=== PATIENT | male | born 1940 | race Caucasian/White ===

== ENCOUNTER 2021-02-07 01:20 | Inpatient (IN) | payer OTHER ==
[~2021-02-07] VITALS: Ht 177.8 cm; Wt 75.6 kg
[~2021-02-07 01:20] MED LIST: ASPI81EC PO; METO50ER PO; STOMACH PILL PO
[2021-02-07 02:02] LABS: BASOPHILS ABSOLUTE AUTO 0.02 K/mm3 (0.00-0.23); BASOPHILS PERCENT AUTO 1 % (0-2); EOSINOPHILS ABSOLUTE AUTO 0.28 K/mm3 (0.00-0.68); EOSINOPHILS PERCENT AUTO 7 % (0-6); Hematocrit 41.6 % (37.0-53.0); Hemoglobin 14.3 g/dL (13.5-17.5); IMMATURE GRAN ABSOLUTE AUTO 0.01 K/mm3 (0.00-0.10); IMMATURE GRAN PERCENT AUTO 0 % (0-1); LYMPHOCYTES ABSOLUTE AUTO 1.17 K/mm3 (0.84-5.20); LYMPHOCYTES PERCENT AUTO 31 % (21-46); MONOCYTES ABSOLUTE AUTO 0.48 K/mm3 (0.16-1.47); MONOCYTES PERCENT AUTO 13 % (4-13); Mean Corpuscular HGB 32.1 pg (26.0-34.0); Mean Corpuscular HGB Conc 34.4 g/dL (31.5-36.5); Mean Corpuscular Volume 94 fL (80-100); Mean Platelet Volume 10.6 fL (9.1-12.4); NEUTROPHILS ABSOLUTE AUTO 1.83 K/mm3 (1.96-9.15); NEUTROPHILS PERCENT AUTO 48 % (41-73); Platelet Count 143 K/mm3 (150-400); RDW Coefficient Variation 11.6 % (11.7-14.2); RDW Standard Deviation 39.1 fL (35.1-46.3); Red Blood Cell Count 4.45 M/mm3 (4.30-5.90); White Blood Cell Count 3.79 K/mm3 (4.00-11.30)
[2021-02-07 02:16] LABS: International Normalized Ratio 0.93
[2021-02-07 02:18] LABS: Alanine Aminotransfer (ALT/SGP 28 U/L (12-78); Albumin, Blood 3.2 g/dL (3.4-5.0); Alk Phos 119 U/L (50-136); Anion Gap 2 mmol/L (6-16); Aspartate Aminotrans (AST/SGOT 14 U/L (12-37); Bilirubin, Total 0.5 mg/dL (0.1-1.0); Blood Urea Nitrogen 26 mg/dL (8-24); Bun/Creatinine Ratio 18.4 (12.0-20.0); CO2, Blood 29 mmol/L (21-32); Calcium, Blood 8.4 mg/dL (8.5-10.1); Chloride, Blood 110 mmol/L (98-108); Creatinine, Blood 1.41 mg/dL (0.60-1.20); Ethanol (Alcohol), Blood, Med <3 mg/dL; Globulin, Blood 3.2 g/dL (2.2-4.0); Glomerular Filtration Rate 52 (60-); Glucose, Blood 96 mg/dL (70-99); Potassium, Blood 4.3 mmol/L (3.5-5.5); Sodium, Blood 141 mmol/L (136-145); Total Protein, Blood 6.4 g/dL (6.4-8.2)
[2021-02-07] MEDS ORDERED: Aspir 8181 MG PO (03:09)
[2021-02-07] MEDS ORDERED: AMLO5 PO (03:10)
[2021-02-07] MEDS ORDERED: LOSA25 PO (03:11)
[2021-02-07] MEDS ORDERED: ATOR80 PO (03:11)
[2021-02-07] MEDS ORDERED: Flomax0.4 MG PO (03:12)
[2021-02-07] MEDS ORDERED: CLOP75 PO (04:04)
[2021-02-07 04:55] LABS: Source, Urine Clean Catch
[2021-02-07 05:05] LABS: Bilirubin, Urine Neg (Neg); Blood, Urine Neg (Neg); Glucose Qualitative, Urine Neg (Neg); Ketones, Urine Neg (Neg); Leukocyte Esterase, Urine Neg (Neg); Nitrite, Urine Neg (Neg); Protein, Urine 1+ (Neg); Urobilinogen, Urine NORM (Normal)
--- NOTE | 2021-02-07 05:05 | NUR ---
GENERAL INTERNIST SUMMARY NEW ADMIT FROM THE ED TONIGHT. PT ADMITTED AFTER EXPERIENCING L ARM WEAKNESS, SLURRED SPEECH, AND LEFT FACIAL DROOP AT HOME. PT AAOX4 AND ABLE TO AMBULATE FROM ED GURNEY TO BED. PT ABLE TO COMMUNICATE FAIRLY WELL WITH SOME MINIMAL SLURRING STILL NOTED. DECREASED STRENGTH AND USE OF L HAND. LEFT FACIAL DROOP STILL PRESENT. 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 NSR ON TELEMETRY. GIVEN ATORVASTATIN AND ASPIRIN PER ORDERS. VSS, WILL CONTINUE TO MONITOR.
[2021-02-07 05:15] LABS: Appearance, Urine Clear (Clear); Color, Urine Yellow (P-Yellow)
[2021-02-07 10:11] LABS: BASOPHILS ABSOLUTE AUTO 0.02 K/mm3 (0.00-0.23); BASOPHILS PERCENT AUTO 0 % (0-2); EOSINOPHILS ABSOLUTE AUTO 0.23 K/mm3 (0.00-0.68); EOSINOPHILS PERCENT AUTO 5 % (0-6); Hematocrit 45.4 % (37.0-53.0); Hemoglobin 15.4 g/dL (13.5-17.5); IMMATURE GRAN ABSOLUTE AUTO 0.02 K/mm3 (0.00-0.10); IMMATURE GRAN PERCENT AUTO 0 % (0-1); LYMPHOCYTES ABSOLUTE AUTO 1.05 K/mm3 (0.84-5.20); LYMPHOCYTES PERCENT AUTO 22 % (21-46); MONOCYTES ABSOLUTE AUTO 0.56 K/mm3 (0.16-1.47); MONOCYTES PERCENT AUTO 12 % (4-13); Mean Corpuscular HGB 31.9 pg (26.0-34.0); Mean Corpuscular HGB Conc 33.9 g/dL (31.5-36.5); Mean Corpuscular Volume 94 fL (80-100); Mean Platelet Volume 10.5 fL (9.1-12.4); NEUTROPHILS ABSOLUTE AUTO 3.01 K/mm3 (1.96-9.15); NEUTROPHILS PERCENT AUTO 62 % (41-73); Platelet Count 152 K/mm3 (150-400); RDW Coefficient Variation 11.5 % (11.7-14.2); RDW Standard Deviation 39.7 fL (35.1-46.3); Red Blood Cell Count 4.83 M/mm3 (4.30-5.90); White Blood Cell Count 4.89 K/mm3 (4.00-11.30)
[2021-02-07 11:41] LABS: Alanine Aminotransfer (ALT/SGP 29 U/L (12-78); Albumin, Blood 3.7 g/dL (3.4-5.0); Alk Phos 140 U/L (50-136); Anion Gap 6 mmol/L (6-16); Aspartate Aminotrans (AST/SGOT 16 U/L (12-37); Bilirubin, Total 0.8 mg/dL (0.1-1.0); Blood Urea Nitrogen 21 mg/dL (8-24); Bun/Creatinine Ratio 17.9 (12.0-20.0); CO2, Blood 24 mmol/L (21-32); Calcium, Blood 9.2 mg/dL (8.5-10.1); Chloride, Blood 110 mmol/L (98-108); Creatinine, Blood 1.17 mg/dL (0.60-1.20); Globulin, Blood 3.7 g/dL (2.2-4.0); Glomerular Filtration Rate >60 (60-); Glucose, Blood 103 mg/dL (70-99); Potassium, Blood 4.1 mmol/L (3.5-5.5); Sodium, Blood 140 mmol/L (136-145); Total Protein, Blood 7.4 g/dL (6.4-8.2)
--- NOTE | 2021-02-07 18:30 | NUR ---
PT AA7OX4. CALLS APPROPRIATELY. LEFT SIDED WEAKNESS. PAIN TOLERABLE. FLUIDS RUNNING AT 50MLS/HR. IV PATENT R FOREARM.IV R HAND INFILTRATED AND REMOVED. CLIENT NPO UNTIL FURTHER ST EVAL IN AM. PLAN FOR [facility] PLACEMENT. PT HAS NO QUESTIONS OR CONCERNS AT THIS TIME
--- NOTE | 2021-02-08 05:20 | NUR ---
SHIFT SUMMARY- PT. A&O, PLEASANT, AND COOPEARTIVE WITH CARE. L SIDED WEAKNESS AND L FACIAL DROOP PRESENT. NPO FOR ST EVAL TODAY. PT. HAD NO COMPLAINTS OF PAIN OR DISCOMFORT T/O THE NIGHT. RESTED QUIETLY DURING THE NIGHT, NO APPARENT DISTRESS NOTED. REMAINS ON 4L NC, THIS IS BASELINE. DENIED ANY NEEDS, VSS. CALL LIGHT WITHIN REACH AND SIDE RAILS UPX2. WILL CONT TO MONITOR.
--- NOTE | 2021-02-08 11:50 | NUR ---
[address] UNTIL ST EVALUATION. AT THERAPIST REQUEST ONLY ESSENTIAL MEDS GIVEN. METOPROLOL ER GIVEN WHOLE IN APPLESAUCE OTHER AM MEDS CRUSHED. CLIENT TAKEN TO [facility] AT 1130 FOR RECOMMENDED SWALLOW STUDY
--- NOTE | 2021-02-08 18:41 | NUR ---
PT AA&OX4. PLEASANT AND COOPERATIVE. CLIENT UNDERWENT A SWALLOW STUDY. MECH SOFT, THIN LIQUIDS, PILLS IN APPLESAUCE RECOMMENDED. REVIEWED WITH CLIENT AND SO, WILL NEED REINFORCED. CLIENT 1 ASSIST, CALLS APPROPRIATELY. MEDICATED FOR HEADACHE X1. PLAN FOR PLACEMENT A SNF.
--- NOTE | 2021-02-09 06:35 | NUR ---
SHIFT SUMMARY PT IS A 80 Y/O MALE, ADMITTED FOR ACUTE CVA WITH L-SIDE WEAKNESS. HE IS A&O X 4, 1PA TO THE BATHROOM. NO C/O PAIN, NAUSEA OR SOB, REPORTS RUE N/T. VITAL SIGNS STABLE. TELE SHOWED NSR IN THE 70S. PT SLEPT FOR AROUND AN HOUR DURING THE NIGHT. NO ACUTE CHANGES IN PT CONDITION NOTED. WILL CONTINUE TO MONITOR AND TREAT PER EMAR UNTIL HAND OFF TO DAY SHIFT RN.
[2021-02-09 12:29] LABS: Influenza A, PCR NEGATIVE (NEGATIVE); Influenza B, PCR NEGATIVE (NEGATIVE); Resp Syncytial Virus, PCR NEGATIVE (NEGATIVE); SARS-Cov-2 (COVID-19) PCR, MMC NEGATIVE (NEGATIVE)
--- NOTE | 2021-02-09 14:01 | NUR ---
PT AA&OX4. PLEASANT AND COOPERATIVE. SBA WITH CONTACT ADONIS. NAHID TODAY. VSS. LEFT LOBES DIMINISHED. DYSPNEA ON EXERTION, RELIEVED BY REST. MAJOR ISSUES NOTED. IV REMOVED CANNULA INTACT. DENIES PAIN. TELE DICONTINUED, PT DISCHARGED TO [place] FOR REHAB. TRANSPORT BY , TRANSFER PAPERS WITH PT.
== END 2021-02-09 13:56 | DRG 65 ==
LOC: ER 01:20 → MEDS 01:21 → ER 02:18 → MEDS 02:18
PROVIDERS: Emergency Medicine; Internal Medicine; ADMIT Internal Medicine
DX: I63.9 Cerebral infarction, unspecified (principal); N17.9 Acute kidney failure, unspecified; R13.10 Dysphagia, unspecified; J44.9 Chronic obstructive pulmonary disease, unspecified; I12.9 Hypertensive chronic kidney disease with stage 1 through stage 4 chronic kidney disease, or unspecified chronic kidney disease; N18.30 Chronic kidney disease, stage 3 unspecified; Z20.822 Contact with and (suspected) exposure to COVID-19; N40.0 Benign prostatic hyperplasia without lower urinary tract symptoms; E78.5 Hyperlipidemia, unspecified; I25.10 Atherosclerotic heart disease of native coronary artery without angina pectoris; R29.810 Facial weakness; Z99.81 Dependence on supplemental oxygen; I25.2 Old myocardial infarction; Z86.73 Personal history of transient ischemic attack (TIA), and cerebral infarction without residual deficits; Z79.82 Long term (current) use of aspirin; Z87.891 Personal history of nicotine dependence; Z95.5 Presence of coronary angioplasty implant and graft
CPT/HCPCS: 0241U; 36415; 70450; 70496; 70498; 71045; 74230; 80053; 82947; 85025; 85610; 85730; 92526; 92610; 92611; 93005; 93010; 93306; 96372; 96374; 97110; 97110-CO; 97116; 97161; 97166; 97530; 97535; 97535-CO; 99285-25; A9270; G0378; G0480; J1650; J2405; J7030; J7042; Q9967

== ENCOUNTER 2023-01-12 09:18 | Emergency (ER) | payer OTHER ==
[~2023-01-12] VITALS: Ht 177.8 cm; Wt 65.8 kg
[~2023-01-12 09:18] MED LIST changes: +AMLO5 PO; +ATOR80 PO; +Aspir 8181 MG PO; +CLOP75 PO; +Flomax0.4 MG PO; +LOSA25 PO
[2023-01-12 09:50] LABS: BASOPHILS ABSOLUTE AUTO 0.02 K/mm3 (0.00-0.23); BASOPHILS PERCENT AUTO 0 % (0-2); EOSINOPHILS ABSOLUTE AUTO 0.01 K/mm3 (0.00-0.68); EOSINOPHILS PERCENT AUTO 0 % (0-6); Hematocrit 44.5 % (37.0-53.0); Hemoglobin 14.8 g/dL (13.5-17.5); IMMATURE GRAN ABSOLUTE AUTO 0.09 K/mm3 (0.00-0.10); IMMATURE GRAN PERCENT AUTO 1 % (0-1); LYMPHOCYTES ABSOLUTE AUTO 0.65 K/mm3 (0.84-5.20); LYMPHOCYTES PERCENT AUTO 5 % (21-46); MONOCYTES ABSOLUTE AUTO 1.07 K/mm3 (0.16-1.47); MONOCYTES PERCENT AUTO 8 % (4-13); Mean Corpuscular HGB 30.8 pg (26.0-34.0); Mean Corpuscular HGB Conc 33.3 g/dL (31.5-36.5); Mean Corpuscular Volume 93 fL (80-100); Mean Platelet Volume 10.5 fL (9.1-12.4); NEUTROPHILS ABSOLUTE AUTO 12.23 K/mm3 (1.96-9.15); NEUTROPHILS PERCENT AUTO 87 % (41-73); Platelet Count 124 K/mm3 (150-400); RDW Coefficient Variation 11.7 % (11.7-14.2); RDW Standard Deviation 39.6 fL (35.1-46.3); White Blood Cell Count 14.07 K/mm3 (4.00-11.30)
[2023-01-12] MEDS ORDERED: HYDR1TAB94 PO (09:54)
[2023-01-12 10:04] LABS: Albumin, Blood 3.6 g/dL (3.4-5.0); Albumin/Globulin Ratio 1.1 (0.8-1.8); Bilirubin, Total 1.6 mg/dL (0.1-1.0); Bun/Creatinine Ratio 20.7 (12.0-20.0); Creatinine, Blood 1.11 mg/dL (0.60-1.20); Globulin, Blood 3.3 g/dL (2.2-4.0); Potassium, Blood 3.9 mmol/L (3.5-5.5); Total Protein, Blood 6.9 g/dL (6.4-8.2)
[2023-01-12] MEDS ORDERED: PRED20 PO (12:48)
== END 2023-01-12 13:08 | disposition home or self-care (01) ==
LOC: ER 09:18
PROVIDERS: Emergency Medicine
DX: J44.1 Chronic obstructive pulmonary disease with (acute) exacerbation (principal); S30.0XXA Contusion of lower back and pelvis, initial encounter; X58.XXXA Exposure to other specified factors, initial encounter; E78.00 Pure hypercholesterolemia, unspecified; I25.10 Atherosclerotic heart disease of native coronary artery without angina pectoris; Z99.81 Dependence on supplemental oxygen; Z79.899 Other long term (current) drug therapy; Z79.82 Long term (current) use of aspirin; Z87.891 Personal history of nicotine dependence
CPT/HCPCS: 36415; 71045; 80053; 85025; 86850; 86900; 86901; 94644; 94664; 96374; 99285-25; J2930